=== PATIENT | male | born 1985 | race Two or more races ===

== ENCOUNTER 2017-04-08 17:17 | Emergency (ER) | payer OTHER ==
[~2017-04-08] VITALS: Ht 175.3 cm; Wt 96.0 kg
[2017-04-08 18:30] VITALS: BP 143/81
== END 2017-04-08 19:06 | disposition home or self-care (01) ==
LOC: ER 17:17
DX: T16.2XXA Foreign body in left ear, initial encounter (principal); X58.XXXA Exposure to other specified factors, initial encounter; Y93.89 Activity, other specified; Y99.8 Other external cause status; Y92.89 Other specified places as the place of occurrence of the external cause